=== PATIENT | female | born 1970 | race Asian ===

== ENCOUNTER → 2017-12-30 | Outpatient (CLI) | payer OTHER ==
[~2017-12-30] MED LIST: FLUT50SP EACH NARE
--- NOTE | 2017-12-30 12:25 | RADRPT ---
EXAM DATE/TIME: 12/30/2017 09:17 [place] COMPARISON: No previous studies available for comparison. INDICATIONS : Pelvic pressure. MEDICAL HISTORY : . SURGICAL HISTORY : None. ENCOUNTER: Initial ACUITY: 1 week PAIN SCORE: 0/10 LOCATION: Bilateral pelvis MEASUREMENTS: UTERUS: 9.6 x 6.9 x cm cm ENDOMETRIAL STRIPE: 4 mm RIGHT OVARY: Not visualized. LEFT OVARY: 3.0 x 1.8 x 1.0 cm FINDINGS: The uterus is retroverted. Numerous fibroids in the uterus, largest ones measuring up to 3.3 cm and 4 .2 cm in the fundal region. Endometrial stripe thickness is about 4 mm. Right ovary not visualized. Left ovary unremarkable. No f ree fluid. CONCLUSION: 1. Enlarged uterus with numerous fibroids as above. No adnexal mass or free fluid identified. Eran Camejo MD on December 30, 2017 at 12:22 Board Certified Radiologist. This report was verified electronically.
== END ==
LOC: HRAD 08:58
PROVIDERS: ATTEND Advanced Practice Midwife
DX: D25.9 Leiomyoma of uterus, unspecified (principal)
CPT/HCPCS: 76830; 76856